=== PATIENT | male | born 1955 | race Caucasian/White ===

== ENCOUNTER 2021-07-16 07:12 | Day surgery (SDC) | payer BC, MEDICARE ==
[~2021-07-16 07:12] MED LIST: Lactated Ringers 1,000 ML IV SCH
[2021-07-16] MEDS ORDERED: Propofol 200 MG/20 ML SDV ONE ×2 (08:08→09:45)
[2021-07-16] MEDS ORDERED: fentaNYL 100 MCG/2 ML SDV ONE (08:08)
== END 2021-07-16 11:35 | disposition home or self-care (01) ==
LOC: VM.SDS 07:12
PROVIDERS: ATTEND Family Medicine
DX: Z12.11 Encounter for screening for malignant neoplasm of colon (principal); K62.1 Rectal polyp; E03.9 Hypothyroidism, unspecified; I10 Essential (primary) hypertension; E78.1 Pure hyperglyceridemia; Z79.899 Other long term (current) drug therapy; Z98.890 Other specified postprocedural states; Z79.82 Long term (current) use of aspirin
CPT/HCPCS: 00812; 45380; J2704; J3010; J7120; 88305

== ENCOUNTER 2023-10-14 13:34 | Emergency (ER) | payer MEDICARE ==
[2023-10-14] MEDS: Ibuprofen 200 MG Tab PO ONE (14:01)
== END 2023-10-14 15:35 | disposition home or self-care (01) ==
LOC: SUPCPDRO 13:34 → VM.ED 13:34
DX: S80.01XA Contusion of right knee, initial encounter (principal); I10 Essential (primary) hypertension; M19.90 Unspecified osteoarthritis, unspecified site; E03.9 Hypothyroidism, unspecified; Z79.82 Long term (current) use of aspirin; Z79.899 Other long term (current) drug therapy; W55.22XA Struck by cow, initial encounter
CPT/HCPCS: 73560; 99283; A9270